=== PATIENT | female | born 1985 | race Caucasian/White ===

== ENCOUNTER 2024-02-29 16:57 | Emergency (ER) | payer OTHER ==
[~2024-02-29] VITALS: Ht 162.6 cm; Wt 103.1 kg
[2024-02-29] MEDS ORDERED: PHEN30CA21 PO (17:16)
[2024-02-29] MEDS ORDERED: TOPI-21 PO (17:16)
[2024-02-29] MEDS ORDERED: LEVO150T7 PO (17:16)
[2024-02-29] MEDS ORDERED: vitamin d3 (17:16)
[2024-02-29] MEDS ORDERED: GABA-1171 PO (17:17)
[2024-02-29] MEDS ORDERED: bcp (17:17)
[2024-02-29 19:01] LABS: BASO % 0.6 % (0.0-1.0); EOS # 0.2 10^3/uL (0.0-0.5); EOS % 2.8 % (0.0-3.0); HEMATOCRIT 40.5 % (36.0-47.0); HEMOGLOBIN 12.9 g/dl (12.0-15.5); LYMPH # 1.9 10^3/uL (1.5-5.0); LYMPH % 26.7 % (24.0-44.0); MEAN CORPUSCULAR HEMOGLOBIN 28.5 pg (27.0-33.0); MEAN CORPUSCULAR HGB CONC 31.9 g/dl (32.0-36.5); MEAN CORPUSCULAR VOLUME 89.4 fl (80.0-96.0); MONO # 0.5 10^3/uL (0.0-0.8); MONO % 6.7 % (2.0-8.0); NEUTROPHILS # 4.5 10^3/uL (1.5-8.5); NEUTROPHILS % 62.9 % (36.0-66.0); PLATELET COUNT, AUTOMATED 262 10^3/uL (150-450); RED BLOOD COUNT 4.53 10^6/uL (4.00-5.40); WHITE BLOOD COUNT 7.2 10^3/uL (4.0-10.0)
[2024-02-29 19:23] LABS: LIPASE 27 U/L (12-53)
[2024-02-29 19:26] LABS: ALBUMIN 3.5 G/DL (3.2-5.2); ALKALINE PHOSPHATASE 46 U/L (46-116); ALT/SGPT 24 U/L (7.0-40); AST/SGOT 18 U/L (<34); BILIRUBIN,DIRECT < 0.1 MG/DL (<0.4); BILIRUBIN,TOTAL 0.2 MG/DL (0.3-1.2); BLOOD UREA NITROGEN 9 MG/DL (9-23); CALCIUM LEVEL 8.5 MG/DL (8.5-10.1); CARBON DIOXIDE LEVEL 23 MMOL/L (20-31); CHLORIDE LEVEL 111 MMOL/L (98-107); GLOMERULAR FILTRATION RATE > 60.0 (>58); GLUCOSE, FASTING 78 MG/DL (60-100); POTASSIUM SERUM 4.2 MMOL/L (3.5-5.1); SODIUM LEVEL 141 MMOL/L (136-145); TOTAL PROTEIN 6.4 G/DL (5.7-8.2)
[2024-02-29] MEDS ORDERED: ISOVUE-370 76% 100ML VIAL As Ordered ONE (20:32)
[2024-02-29] MEDS: KETOROLAC 30 MG/ML 1ML VIAL IV ONE (21:21)
[2024-02-29] MEDS ORDERED: AMOX875T2 PO (23:27)
[2024-03-01] MEDS: AUGMENTIN 875 MG TAB PO ONE
[2024-03-01 00:15] VITALS: BP 140/70; TEMP 98.2; O2SAT 100
== END 2024-03-01 00:24 | disposition home or self-care (01) ==
LOC: M ED 16:57
DX: K57.32 Diverticulitis of large intestine without perforation or abscess without bleeding (principal); E03.9 Hypothyroidism, unspecified; F10.10 Alcohol abuse, uncomplicated; Z87.891 Personal history of nicotine dependence; Z98.84 Bariatric surgery status; Z79.2 Long term (current) use of antibiotics; Z79.899 Other long term (current) drug therapy
CPT/HCPCS: 74177; 80048; 80076; 83690; 85025; 96374; 99284; J1885; Q9967